=== PATIENT | female | born 1990 | race Caucasian/White ===

== ENCOUNTER 2017-05-05 00:31 | Inpatient (IN) ==
[2017-05-05 01:19] LABS: URINE SOURCE VOIDED
[2017-05-05 01:42] LABS: BILIRUBIN URINE NEGATIVE (NEGATIVE); BLOOD URINE NEGATIVE (NEGATIVE); CLARITY CLEAR (CLEAR); COLOR YELLOW; GLUCOSE URINE NEGATIVE (NEGATIVE); LEUKOCYTES URINE 1+ (NEGATIVE); NITRITE URINE NEGATIVE (NEGATIVE); PROTEIN URINE NEGATIVE (NEGATIVE); UROBILINOGEN URINE NORMAL
[2017-05-05] MEDS ORDERED: PITOCIN 30 UNITS/LR 30 UNITS/500 ML IV.SOLN IV SCH (02:58)
[2017-05-05] MEDS ORDERED: KEFZOL 1 GM/D5W 1 GM/50 ML IVPB IV PRN (02:58)
[2017-05-05] MEDS ORDERED: REGLAN PO ONE (02:58)
[2017-05-05] MEDS ORDERED: PEPCID IV PRN (02:58)
[2017-05-05] MEDS ORDERED: ZOFRAN IV PRN (02:58)
[2017-05-05] MEDS ORDERED: PEPCID PO ONE (02:58)
[2017-05-05] MEDS ORDERED: TYLENOL PO PRN (02:58)
[2017-05-05] MEDS ORDERED: PEPCID PO PRN (02:58)
[2017-05-05] MEDS ORDERED: PHENERGAN IV PRN (02:59)
[2017-05-05] MEDS ORDERED: XYLOCAINE 1% INJ ONE (02:59)
[2017-05-05] MEDS ORDERED: SODIUM CHLORIDE 0.9% INJ PRN (02:59)
[2017-05-05] MEDS ORDERED: MINERAL OIL PRN (02:59)
[2017-05-05] MEDS ORDERED: SODIUM CHLORIDE 0.9% INJ SCH (03:00)
[2017-05-05] MEDS ORDERED: XYLOCAINE-MPF 1% INJ ONE (03:30)
[2017-05-05] MEDS: LR 1,000 ML IV SCH ×3 (03:35→07:59)
[2017-05-05] MEDS: STADOL IV PRN ×2 (03:44→06:53)
[2017-05-05 03:56] LABS: MANUAL DIFF NEEDED? NO
[2017-05-05 03:59] LABS: BASO% 0.2 % (0.0-0.8); EOS# 0.05 X1000 (0.0-0.7); EOS% 0.4 % (0.0-10.0); HEMATOCRIT 38.2 % (37.0-47.0); IMM GRAN# 0.06 X1000 (0.0-0.04); IMM GRAN% 0.4 % (0.0-0.5); LYMPH# 1.68 X1000 (1.2-3.4); LYMPH% 12.1 % (20.5-51.1); MCH 30.4 PG (27-31); MCV 89.3 FL (81-99); MONO% 6.5 % (1.7-9.3); MPV 10.2 FL (7.4-10.4); NEUT% 80.4 % (42.2-75.2); PLT 204 X1000 (130-400); RBC 4.28 XMIL (4.2-5.4)
[2017-05-05] MEDS ORDERED: XYLOCAINE-MPF 1% INJ PRN ×3 (04:03→13:15)
[2017-05-05] MEDS ORDERED: FENTANYL-BUPIV-NS 2 MCG-0.1% 200 ML EPIDURAL PRN (04:04)
[2017-05-05] MEDS ORDERED: HYDROXYZINE PO PRN (13:15)
[2017-05-05] MEDS ORDERED: BENADRYL IV PRN (13:15)
[2017-05-05] MEDS ORDERED: MINERAL OIL PO PRN (13:15)
[2017-05-05] MEDS ORDERED: HYDROXYZINE IM PRN (13:15)
[2017-05-05] MEDS ORDERED: NORCO-5 PO PRN (13:15)
[2017-05-05] MEDS ORDERED: PITOCIN 30 UNITS/LR 30 UNITS/500 ML IV.SOLN IV ONE (13:15)
[2017-05-05] MEDS ORDERED: PITOCIN 20 UNITS/LR 20 UNITS/1,000 ML IV.SOLN IV SCH (13:15)
[2017-05-05] MEDS ORDERED: PERCOCET-5 PO PRN (13:15)
[2017-05-05] MEDS ORDERED: M-M-R II VACCINE SUBQ ONE (13:15)
[2017-05-05] MEDS ORDERED: PERI MEDS (DERMOPLAST/NUPERCAINAL/TUCKS) MISC PRN (13:15)
[2017-05-05] MEDS ORDERED: PITOCIN IM PRN (13:15)
[2017-05-05] MEDS ORDERED: BENADRYL PO PRN (13:15)
[2017-05-05] MEDS ORDERED: CYTOTEC PO PRN (13:15)
[2017-05-05] MEDS ORDERED: AMBIEN PO PRN (13:15)
[2017-05-05] MEDS ORDERED: BOOSTRIX VACCINE IM ONE (13:15)
[2017-05-05] MEDS: MOTRIN PO PRN (16:22)
[2017-05-05] MEDS: NORCO-10 PO PRN ×2 (16:22→22:15)
[2017-05-05] MEDS: PERICOLACE PO SCH (22:15)
[2017-05-06] MEDS: NORCO-10 PO PRN ×4 (02:19→16:32)
[2017-05-06] MEDS: MOTRIN PO PRN ×3 (02:19→19:41)
[2017-05-06 06:29] LABS: MANUAL DIFF NEEDED? NO
[2017-05-06 06:35] LABS: BASO% 0.1 % (0.0-0.8); EOS# 0.09 X1000 (0.0-0.7); HEMATOCRIT 32.8 % (37.0-47.0); HEMOGLOBIN 10.5 g/dL (12.0-16.0); IMM GRAN# 0.04 X1000 (0.0-0.04); IMM GRAN% 0.4 % (0.0-0.5); LYMPH# 2.03 X1000 (1.2-3.4); LYMPH% 22.6 % (20.5-51.1); MCH 29.5 PG (27-31); MCV 92.1 FL (81-99); MONO% 7.8 % (1.7-9.3); MPV 10.8 FL (7.4-10.4); NEUT% 68.1 % (42.2-75.2); PLT 174 X1000 (130-400); RBC 3.56 XMIL (4.2-5.4)
[2017-05-06] MEDS: PERICOLACE PO SCH (21:08)
[2017-05-06] MEDS: PERCOCET-10 PO PRN (22:45)
[2017-05-07] MEDS: MOTRIN PO PRN (04:11)
[2017-05-07] MEDS: PERCOCET-10 PO PRN ×2 (04:11→08:35)
[2017-05-07 08:42] VITALS: BP 146/82
== END 2017-05-07 11:30 | disposition home or self-care (01) ==
LOC: P.OPLD 00:31 → P.LD 00:32
PROVIDERS: ADMIT Obstetrics & Gynecology; ATTEND Obstetrics & Gynecology